=== PATIENT | female | born 1990 | race Caucasian/White ===

== ENCOUNTER 2025-03-17 06:30 | Emergency (ER) | payer OTHER, SELFPAY ==
[2025-03-17 06:34] VITALS: BP 132/94
--- NOTE | 2025-03-17 06:51 | ED.GENMED ---
History of Present Illness
General
Chief Complaint: Allergic Reaction
Source: patient
Exam Limitations: none
Time Seen by Provider: 03/17/25 06:36
Nursing documentation reviewed up to this point in time: agreed with
History of Present Illness
History of Present Illness:
34-year-old female with history of asthma who presents to the ER for evaluation of rash. Patient reports that late last week she started to have flulike illness�describes fever with myalgias and mild cough. She says that she was started
empirically on antibiotics Sunday (Augmentin) which she has been taking since then. She says that on Sunday she started with worsening cough that she says that this is typical of her asthma symptoms that flareup when she is sick. She was started
on a Medrol Dosepak which seems to have helped this. This morning she woke up with pruritic rash/hives and was concern for allergic reaction to these medicines and so she came to the ER for evaluation. She does note that she has had both these
medications in the past without any allergic reaction. Aside from hives this morning she denies any other symptoms�fever resolved, no longer coughing, no shortness of breath or wheezing, no nausea, vomiting, abdominal cramping. She denies any
other acute complaints. No other clear allergic exposures.
Past History
Past History
ED Past Medical History: Other (Fibroids)
ED Past Surgical History: None
Social History
Tobacco: Non-smoker
Alcohol: None
Drug: None
Personal:
Living: with family
Employment: Employed
Review of Systems
Review of Systems
All Other Systems: ROS reviewed and negative except as documented in HPI and ROS
Constitutional: Denies fever (Resolved)
Respiratory: Denies cough or trouble breathing
Cardiac: Denies chest pain
ABD/GI: Denies abdominal pain, nausea or vomiting
Skin: Reports itching and rash
Neurological: Denies dizzy or headache
Phy Exam
Physical Exam
Physical Exam:
General: Awake, alert, oriented x3; no acute distress
Head: Normocephalic, atraumatic
Eyes: Conjunctiva normal
Throat: Airway intact, handling secretions, no swelling of the tongue or uvula, no swelling of the lips, no oral lesions noted
Neck: Trachea midline, supple without meningismus
Lungs: Clear to auscultation bilaterally, no wheezing, rales, rhonchi
Heart: Tachycardia with regular rhythm, no murmurs, gallops, or rubs
Neuro: No gross deficits
Skin: Patient has hives scattered across her body most notably in the low back, buttock, anterior thighs with a few scattered lesions on the abdomen, 1 hive noted on the face (lateral to the right eye)
Extremities: Warm and well-perfused
Scores
Heart Failure Risk
Heart Failure Risk Score: Not Applicable
Heart Score for Chest Pain Patients
STEMI patient?: Not applicable
Withdrawal Assessment of Alcohol
Withdrawal Assessment Completed?: Not applicable
Course
Orders/Labs/Results
Orders:
Orders
03/17/25 06:47
Diphenhydramine [Benadryl] 50 mg IV NOW STA
Famotidine [Pepcid] 20 mg IV NOW STA
MethylPREDNISolone PF [Solu-Medrol Pf] 125 mg IV NOW STA
03/17/25 06:48
0.9% Sodium Chloride 500 ml [Nss] 500 ml IV BOLUS
03/17/25 07:03
Monotest Urgent
Abnormal Lab Results
03/17/25
07:03
Monoscreen Positive A
(Negative)
Vital Signs
Initial and Last Documented VS:
Initial Vital Signs
Temp Pulse Resp BP Pulse Ox
36.6 C 125 18 132/94 100
03/17/25 06:34 03/17/25 06:34 03/17/25 06:34 03/17/25 06:34 03/17/25 06:34
Last Documented Vital Signs
Temp Pulse Resp BP Pulse Ox
36.4 C 81 16 118/79 100
03/17/25 07:10 03/17/25 08:20 03/17/25 08:20 03/17/25 08:20 03/17/25 08:20
MDM/Problems Addressed
Differential Diagnosis Includes:
Allergic reaction, autoimmune, viral rash
MDM/Problems Addressed:
34-year-old female presents with pruritic hives since this morning; she has had recent mild viral syndrome and was started on empiric Augmentin, subsequently developed some asthma symptoms and was started on Medrol Dosepak yesterday. Vitals and
exam as above. At this point no signs to suggest anaphylaxis�she has only hives but no wheezing/respiratory symptoms or GI symptoms. Will plan to treat with antihistamines and IV steroid. Check Monospot with rash after starting Augmentin in the
setting of likely viral syndrome. Will plan to discontinue Augmentin.
Clinical reassessment vitals have improved with resolution of tachycardia. Patient says that her itching has greatly improved with medications as above. Hives are generally improving although still present prominently on the thighs and buttock.
Will continue to monitor and reassess.
Monospot is positive�suspect mononucleosis infection is because of her fever/viral syndrome and likely antibiotics in the setting of mono accounts for her rash. Spoke to patient about mono precautions including preventing spread, splenic
precautions. Advised to discontinue Augmentin. Her rash continues to improve; will continue to monitor. As long as her symptoms continue to improve can likely be discharged with outpatient PCP follow-up.
Has significantly improved patient feeling much better. Stable for discharge follow-up with PCP. Spoke about return precautions and instructions as above. All questions answered.
*Pulse Oximetry
SaO2: 100
Oxygen Mode of Delivery: Room air
Patient hypoxic: no (100%)
*Critical Care Note
Total Time (30-74mins, 75-104mins- exclusive of procedures): Not Applicable
Data Reviewed
Source: patient and records
ED Attending Note
-
Portions of this chart may have been created with voice recognition software.� Occasional wrong word or��sound alike� substitutions may have occurred due to the inherent limitations of voice recognition software.
Discharge Plan
Departure
Patient Disposition: Home (Routine Discharge)
Date of Disposition: 03/17/25
Time of Disposition: 08:54
Patient with high blood pressure during this ER visit?: No
Discharge Problem:
Mononucleosis, Hives
Instructions: Hives (DC), Mononucleosis
Prescriptions:
No Action
drymwzsrui-ytwqqsdtxoeto-[id number] [Fioricet] 1 EACH capsule
1 ea PO Q6H PRN (Reason: pain) Qty: 20 0RF
omeprazole 20 mg Capsule,Delayed Release(Dr/Ec)
20 mg PO DAILY
Referrals:
Kyleigh Esqueda PA [Family Provider, Family Practice]
Activity Restrictions/Additional Instructions:
You should discontinue your antibiotic (Augmentin). You should continue to take the steroid prescribed and can take Benadryl and Pepcid over the next few days as needed for itchiness/hives. You should avoid contact sports or vigorous exertion for
the next 4 weeks in the setting of mono infection to protect your spleen as we discussed. You should follow-up with your primary doctor next week. You should avoid sharing drinks, kissing, etc to prevent spread.
Thank you for visiting the Emergency Department at [facility].
1. Please schedule a follow up appointment as directed. Call first thing tomorrow morning to make an appointment.
2. If indicated, please take your medications as instructed and indicated on discharge paperwork.
3. If any of your symptoms do not improve, or persist, or become more severe within 6-12 hours, please return to the emergency department for further care.
4. Please return to the emergency department if you develop a headache, neck pain/stiffness, fever greater than 100.4F, chest pain, shortness of breath, persistent nausea, vomiting, slurred speech, difficulty walking, numbness/tingling, weakness,
signs of infection or any other symptoms that are worrisome to you.
Please call [phone] if you have any questions.
Interventions
Interventions:
*Risk Screen - Suicide Last Done: 03/17/25 06:34
*General Assessment Last Done: 03/17/25 06:34
*Neglect/Abuse Screening Last Done: 03/17/25 06:34
*ED- Fall Risk Assessment Last Done: 03/17/25 07:10
*ED COVID-19 Vaccine History Last Done: 03/17/25 07:10
ED- Cardiac Assessment Last Done: 03/17/25 07:10
ED- Pulmonary Assessment Last Done: 03/17/25 07:10
ED-Skin Assessment Last Done: 03/17/25 07:10
Discharge Date and Time
Print Language: FIJIAN
[2025-03-17] MEDS: BENADRYL 50 MG IV (06:53)
[2025-03-17] MEDS: SOLU-MEDROL PF 125 MG IV (06:53)
[2025-03-17] MEDS: PEPCID 20 MG IV (06:53)
[2025-03-17] MEDS: NSS 500 IV (06:54)
[2025-03-17 07:06] VITALS: BMI 23.1
[2025-03-17 07:10] VITALS: BP 124/81
[2025-03-17 08:00] VITALS: BP 118/79
[2025-03-17 08:20] VITALS: BP 118/79
== END 2025-03-17 08:57 | disposition home or self-care (01) ==
LOC: EMR 06:30
PROVIDERS: EMERGENCY PHYSICIAN Emergency Medicine; FAMILY PHYSICIAN Physician Assistant
DX: B27.90 Infectious mononucleosis, unspecified without complication (principal); L50.9 Urticaria, unspecified; J45.909 Unspecified asthma, uncomplicated; Z87.891 Personal history of nicotine dependence
CPT/HCPCS: 99284; 96374; 96375 ×2; 96361; 86308